=== PATIENT | female | born 1985 | race Caucasian/White ===

== ENCOUNTER → 2016-08-06 | Outpatient (CLI) | payer OTHER ==
[~2016-08-06] MED LIST: OXYC-57 PO; PRENTAB26 PO
[2016-08-06 12:47] LABS: URINE APPEARANCE CLEAR (CLEAR); URINE BILIRUBIN NEG (NEG); URINE COLOR YELLOW; URINE NITRITE NEG (NEG); UROBILINOGEN NEG (NEG)
[2016-08-06 12:56] LABS: MANUAL MICROSCOPIC REQUIRED? NO; REVIEW REQ? NO
== END | disposition home or self-care (01) ==
LOC: C.LABSPEC 12:04
PROVIDERS: ATTEND Obstetrics & Gynecology
DX: O09.40 Supervision of pregnancy with grand multiparity, unspecified trimester (principal); Z3A.00 Weeks of gestation of pregnancy not specified

== ENCOUNTER → 2016-08-13 | Outpatient (CLI) | payer OTHER | END | disposition home or self-care (01) | LOC: C.PAPS 10:26 | PROVIDERS: ATTEND Obstetrics & Gynecology | DX: O09.42 Supervision of pregnancy with grand multiparity, second trimester (principal); Z3A.00 Weeks of gestation of pregnancy not specified ==

== ENCOUNTER → 2016-11-18 | Outpatient (CLI) | payer OTHER ==
[2016-11-18 14:39] LABS: HEMATOCRIT 35.4 % (37-47)
[2016-11-18 17:54] LABS: GTGD 50 Grams
== END | disposition home or self-care (01) ==
LOC: C.LAB1850 12:18
PROVIDERS: ATTEND Obstetrics & Gynecology
DX: O09.42 Supervision of pregnancy with grand multiparity, second trimester (principal)

== ENCOUNTER → 2016-11-18 | Outpatient (CLI) | payer OTHER ==
[2016-11-18 15:07] LABS: URINE APPEARANCE CLEAR (CLEAR); URINE BILIRUBIN NEG (NEG); URINE COLOR DK YELLOW; URINE EPITHELIAL CELL AUTO >30 /lpf (0-5); URINE NITRITE NEG (NEG); URINE SPECIFIC GRAVITY 1.023 (1.000-1.030); UROBILINOGEN NEG (NEG)
[2016-11-18 15:09] LABS: MANUAL MICROSCOPIC REQUIRED? NO; REVIEW REQ? NO
== END | disposition home or self-care (01) ==
LOC: C.LABSPEC 13:35
PROVIDERS: ATTEND Obstetrics & Gynecology
DX: O09.42 Supervision of pregnancy with grand multiparity, second trimester (principal)

== ENCOUNTER → 2017-01-14 | Outpatient (CLI) | payer OTHER | END | disposition home or self-care (01) | LOC: C.LAB 12:25 | PROVIDERS: ATTEND Obstetrics & Gynecology | DX: Z01.812 Encounter for preprocedural laboratory examination (principal) ==

== ENCOUNTER 2017-01-24 05:22 | Inpatient (IN) | payer OTHER ==
--- NOTE | 2017-01-14 13:14 | HISTORY & PHYSICAL EXAMINATION ---
DATE OF ADMISSION: 01/24/2017 ADMITTING DIAGNOSES: 1. Term . 2. Previous sections x4. ADMISSION HISTORY: The patient is a 31-year-old 6, para 4-1-0-5 with a last menstrual period of 24 April and an EDC of 29 January by dates and first trimester ultrasound, who is admitted for a repeat section. The patient has had 4 previous sections as well as a vaginal after section. The patient has opted for the repeat section. The patient has had a benign course. Her blood type is O positive, antibody negative, rubella immune, and hepatitis B negative. She declined a quad screen. She had a normal 1-hour Glucola x2 and a negative third trimester beta strep culture. PAST MEDICAL HISTORY: OBSTETRICAL: As above. GYNECOLOGY: None. MEDICAL: None. SURGICAL: section. ALLERGIES: No known drug allergies. SOCIAL HISTORY: No smoking. FAMILY HISTORY: Noncontributory. REVIEW OF SYSTEMS: As per HPI. PHYSICAL EXAMINATION: GENERAL: Today shows a pleasant obese female in no acute distress. VITAL SIGNS: Blood pressure 124/70, height of 5 feet 1 inches and weight of 231 pounds. HEENT EXAMINATION: Unremarkable. NECK: Supple. LUNGS: Clear. HEART: With a regular rhythm and rate. ABDOMEN: Gravid, vertex, positive heart tones, estimated weight of 7-1/2 pounds. PELVIC: Shows normal external genitalia, vaginal wall pink and rugated. Cervix is long, thick and closed. EXTREMITIES: No deep calf tenderness. NEUROLOGIC: Grossly intact. IMPRESSION: A 31-year-old 6, para 4-1-0-5 at 39+ weeks' gestational age for repeat section. PLAN: Risks, benefits and alternatives to the surgery have been discussed. While the benefits will be delivery of the infant, the risks are bleeding, infection, inadvertent injury to bowel or bladder, readmission or reoperation. We have also discussed permanent surgical sterilization as she will be having her fifth section. The patient declines permanent surgical sterilization. She understands the risk in the future of getting again. The permit has been signed and she wishes to proceed.
[2017-01-14 13:23] LABS: BASO % 0.2 %; BASO ABS # 0.02 K/uL (0-0.2); COMPLETE YES; HEMATOCRIT 35.4 % (37-47); IG% 0.2 %; LYMPH % 27.1 %; LYMPH ABS # 2.53 K/uL (1.2-3.4); MEAN CELL VOLUME 81.9 fL (80-100); MEAN CORPUSCULAR HEMOGLOBIN 27.1 pg (25-34); MEAN CORPUSCULAR HGB CONC 33.1 g/dl (32-36); MEAN PLATELET VOLUME 10.2 fL (7.4-10.4); MONO % 9.9 %; NEUT % 60.6 %; PLATELET COUNT 287 K/uL (130-400); RED BLOOD COUNT 4.32 M/uL (4.2-5.4); WHITE BLOOD COUNT 9.32 K/uL (4.8-10.8)
--- NOTE | 2017-01-21 10:52 | PAT Medication Instructions ---
Service Date Jan 21, 2017. Current Home Medication List Multivit/Min/Iron/Fol Ac/Pren ( Vitamin), 1 TAB PO QAM Medication Instructions For Your Scheduled Surgery - Hold the following medications the morning of surgery: Multivit/Min/Iron/Fol Ac/Pren ( Vitamin), 1 TAB PO QAM Nothing to eat or drink after midnight If you have any questions please call us at [phone] or [phone] or [phone]
[2017-01-24] VITALS (16 sets, daily range): BP systolic 98–126; BP diastolic 59–78; PULSE 78–88; TEMP 36.7–37.1; O2SAT 97–100; Ht 154.9 cm; Wt 105.0 kg
[~2017-01-24] VITALS: Ht 154.9 cm; Wt 105.0 kg
[~2017-01-24 05:22] MED LIST changes: -OXYC-57 PO
[2017-01-24] MEDS ORDERED: LACTATED RINGER'S 1000ML 1,000 ML IV SCH ×2 (05:26→06:00)
[2017-01-24] MEDS ORDERED: CEFAZOLIN IV 2,000 MG in DEXTROSE 5% 50ML IV SCH (06:00)
[2017-01-24] MEDS ORDERED: CITRIC ACID/SODIUM CITRATE 15 ML UDC PO SCH (06:00)
[2017-01-24 06:07] LABS: BASO % 0.3 %; BASO ABS # 0.03 K/uL (0-0.2); COMPLETE YES; EOS % 1.3 %; IG% 0.3 %; LYMPH % 25.7 %; LYMPH ABS # 2.59 K/uL (1.2-3.4); MEAN CELL VOLUME 81.6 fL (80-100); MEAN CORPUSCULAR HEMOGLOBIN 26.5 pg (25-34); MEAN CORPUSCULAR HGB CONC 32.5 g/dl (32-36); MEAN PLATELET VOLUME 10.2 fL (7.4-10.4); MONO % 7.1 %; NEUT % 65.3 %; PLATELET COUNT 263 K/uL (130-400); RED BLOOD COUNT 4.41 M/uL (4.2-5.4); WHITE BLOOD COUNT 10.09 K/uL (4.8-10.8)
--- NOTE | 2017-01-24 07:13 | History & Physical Bridge Note ---
H&P Re-Evaluation Bridge Note: I have examined the patient, reviewed the History & Physical and in the interval since the performance of the History & Physical I have noted the following changes of clinical significance: No changes noted
[2017-01-24] MEDS ORDERED: MoRPHine SULFATE PF 1 MG/ML 10 ML AMP/VIAL ONE (07:55)
[2017-01-24] MEDS ORDERED: OXYTOCIN INJ 10 UNITS/ML VIAL ONE (08:08)
[2017-01-24] MEDS ORDERED: EpHEDrine SULFATE 50MG/5ML SYR ONE (08:09)
[2017-01-24] MEDS ORDERED: PHENYLEPHRINE 100MCG/ML 5ML SYR ONE (08:09)
--- NOTE | 2017-01-24 08:28 | [facility] Post Operative Brief Note ---
Immediate Operative Summary Operative Date Jan 24, 2017. Pre-Operative Diagnosis 1)Term . 2) Previous caesarean section X4. Post-Operative Diagnosis Same as above. Procedure(s) Performed 1)Repeat low cervical caesarean section. Delivery of live male child at [address]. Sur[address] Miller Golf Ball Molder Surgeon(s) Dr. Dubon Estimated Blood Loss 800cc Findings Viable male , Apgars 8/9, weight 7lbs 9 ozs, art/venous cord gasses pending, normal appearing tubes and ovaries bilaterally Fluids (cc crystalloids) 1000 Specimens A: Placenta hold B: Cord blood C: Cord gasses Drains Murillo to gravity Anesthesia Spinal Complication(s) None Disposition L&D
[2017-01-24] MEDS ORDERED: DIPHTHERIA/TETANUS/PERTUSSIS 0.5 ML SYR/VIAL IM. ONE (08:30)
[2017-01-24] MEDS ORDERED: SUPERCREAM 0.870 % 15GM JAR EXT PRN (08:30)
[2017-01-24] MEDS ORDERED: LANOLIN OINT EXT PRN ×2 (08:30)
[2017-01-24] MEDS ORDERED: BENZOCAINE 20% AER SPR 82.5 GM CAN EXT PRN (08:30)
[2017-01-24] MEDS ORDERED: HYDROCORTISONE ACETATE 25 MG SUPP PR PRN (08:30)
--- NOTE | 2017-01-24 08:46 | Medical Student: [facility] ---
Immediate Operative Summary Operative Date Jan 24, 2017. Pre-Operative Diagnosis Term . Repeat section x4. Post-Operative Diagnosis See above. Procedure(s) Performed Repeat section, vertical midline incision of a live male infant at 0755 Surgeon Faheem Miller MD Separating Machine Operator Surgeon(s) Carlyle Dubon MD Estimated Blood Loss 800cc Findings Live male , Apgars 8/9. 7 lbs 9 ozs. Normal appearing ovaries. Fluids (cc crystalloids) 1000cc Specimens Placenta Cord specimen Cord gasses Drains Murillo Anesthesia Spinal Complication(s) None Disposition L&D
[2017-01-24] MEDS: SIMETHICONE 80 MG CHEW PO SCH ×4 (09:00→20:00)
[2017-01-24] MEDS: OXYTOCIN INJ 20 UNITS in LACTATED RINGER'S 1000ML 1,000 ML IV SCH ×2 (09:05→17:53)
[2017-01-24] MEDS ORDERED: NALOXONE HCL INJ 1 MG in SODIUM CHLORIDE 0.9% 1000ML 1,000 ML IV PRN (09:21)
[2017-01-24] MEDS ORDERED: SODIUM CHLORIDE 0.9% 1000ML 1,000 ML IV PRN (09:21)
[2017-01-24] MEDS ORDERED: NALOXONE HCL INJ 0.08 MG in SYRINGE 1.8 ML IV PRN (09:21)
[2017-01-24] MEDS ORDERED: LACTATED RINGER'S 1000ML 500 ML IV PRN (09:21)
--- NOTE | 2017-01-24 09:24 | Anesthesiology Progress Note ---
Anesthesia Post Op Note Date & Time Jan 24, 2017 at 09:23 Notes Mental Status: alert / awake / arousable, participated in evaluation Pt Amnestic to Procedure: Yes Nausea / Vomiting: adequately controlled Pain: adequately controlled Airway Patency, RR, SpO2: stable & adequate BP & HR: stable & adequate Hydration State: stable & adequate Neuraxial Anesthesia: was administered, sensory block is resolving Anesthetic Complications: no major complications apparent
[2017-01-24] MEDS ORDERED: NO NARCOTICS OR SEDATIVES SCH (09:30)
[2017-01-24] MEDS ORDERED: FENTANYL CITRATE INJ 50 MCG/1 ML 2 ML VIAL IV PRN (09:30)
[2017-01-24] MEDS ORDERED: NALOXONE HCL 0.4 MG/1 ML VIAL/CARP IV PRN (09:30)
[2017-01-24] MEDS ORDERED: ATROPINE SULFATE 0.1 MG/ML 5ML SYR IV PRN (09:30)
[2017-01-24] MEDS ORDERED: MEPERIDINE HCL 25 MG/ML CARP IV PRN ×2 (09:30)
[2017-01-24] MEDS ORDERED: HYDROmorphone INJ 1 MG/ML SYR IV PRN (09:30)
[2017-01-24] MEDS ORDERED: NALBUPHINE HCL INJ 10 MG/ML AMP IV PRN (09:30)
[2017-01-24] MEDS ORDERED: KETOROLAC TROMETHAMINE 30 MG/ML VIAL IV. PRN (09:30)
[2017-01-24] MEDS ORDERED: MoRPHine SULFATE PF 1 MG/ML 10 ML AMP/VIAL EPI PRN (09:30)
[2017-01-24] MEDS ORDERED: ONDANSETRON INJ 2 MG/ML 2 ML VIAL IV PRN ×2 (09:30)
[2017-01-24] MEDS ORDERED: EpHEDrine SULFATE INJ 50 MG/ML AMP IV PRN ×2 (09:30)
[2017-01-24] MEDS ORDERED: MoRPHine SULFATE 2 MG/ML CARP IV PRN (09:30)
[2017-01-24] MEDS ORDERED: LABETALOL HCL IV 5 MG/ML 20ML IV PRN (09:30)
[2017-01-24] MEDS ORDERED: DiphenhydrAMINE HCL 50 MG/ML VIAL IV PRN ×2 (09:30)
--- NOTE | 2017-01-24 09:42 | OPERATIVE REPORT ---
DATE OF OPERATION: 01/24/2017 PREOPERATIVE DIAGNOSES: 1. Term . 2. Previous section x4. POSTOPERATIVE DIAGNOSES: Same. PROCEDURE PERFORMED: Repeat low cervical transverse section. SURGEON: Dr. Faheem Miller. CUSTOMS COMPLIANCE DIRECTOR: Dr. Rajiv Hyde ANESTHESIA: Spinal. FINDINGS: Viable male with Apgars of 8 and 9, weight of 7 pounds 9 ounces. Arterial and venous cord gases are pending. Normal appearing tubes and ovaries bilaterally. PROCEDURE IN DETAIL: The patient was taken to the operating room and after spinal anesthesia, she was placed in supine position and draped and prepped in the usual fashion. Midline vertical incision through previous surgical scar was made. Underlying subcutaneous tissue was dissected down to the ventral abdominal fascia, which was nicked and opened in a vertical manner. Preperitoneal fascia was dissected away until the peritoneal cavity was entered and opened in a vertical manner. Bladder blade was placed. The peritoneum overlying the uterus was elevated, opened in a semi-lunar fashion, the inferior margin of which was taken down creating the bladder flap. The uterus was entered sharply and extended in a semi-lunar fashion manually. Viable male with description as above was delivered. Loose nuchal cord x1 reduced on the perineum. Baby was delivered. Cord was clamped and cut and the baby was passed off to pediatrics, who was in attendance for the delivery. Cord gases and cord blood samples obtained. Placenta was delivered spontaneously. The uterus was exteriorized. The uterine cavity was wiped clean of any residual blood tissue and/or clot. Uterine incision was then closed with 2 layers of 4-0 Vicryl, the first a running locking stitch and the second an imbricating stitch. Hemostasis achieved and the uterus returned to the pelvic cavity. The paracolic gutters were cleared bilaterally of any blood tissue and/or clot. Inspection of the uterine incision again showed hemostasis. Sponge and needle count was correct. The fascia was then closed in a vertical manner from the inferior and superior poles to the midline with a running #1 PDS suture. Hemostasis present. Subcutaneous tissue was irrigated with warm saline and reapproximated with interrupted 2-0 plains. The skin incision was closed with theo. Sterile dressing was applied and the patient was taken to the recovery room in satisfactory condition. I attest to the content of the Intraoperative Record and any orders documented therein. Any exceptions are noted below. MTDD
[2017-01-25] VITALS: O2SAT 97
[2017-01-25 01:00] VITALS: O2SAT 100
[2017-01-25] MEDS ORDERED: MEPERIDINE HCL 50 MG/ML CARP IV PRN (01:30)
[2017-01-25] MEDS ORDERED: KETOROLAC TROMETHAMINE 30 MG/ML VIAL IV. PRN (01:30)
[2017-01-25] MEDS ORDERED: DC INTRASPINAL MORPHINE ONE (01:30)
[2017-01-25] MEDS ORDERED: ONDANSETRON INJ 2 MG/ML 2 ML VIAL IV PRN (01:30)
[2017-01-25] MEDS ORDERED: DiphenhydrAMINE HCL 50 MG/ML VIAL IV PRN (01:30)
[2017-01-25 04:00] VITALS: BP 112/71; PULSE 81; TEMP 36.8
[2017-01-25 06:23] LABS: BASO % 0.4 %; BASO ABS # 0.04 K/uL (0-0.2); COMPLETE YES; HEMATOCRIT 34.2 % (37-47); IG% 0.2 %; LYMPH % 16.3 %; LYMPH ABS # 1.73 K/uL (1.2-3.4); MEAN CELL VOLUME 81.6 fL (80-100); MEAN CORPUSCULAR HEMOGLOBIN 26.3 pg (25-34); MEAN CORPUSCULAR HGB CONC 32.2 g/dl (32-36); MEAN PLATELET VOLUME 10.1 fL (7.4-10.4); NEUT % 73.1 %; PLATELET COUNT 221 K/uL (130-400); RED BLOOD COUNT 4.19 M/uL (4.2-5.4); WHITE BLOOD COUNT 10.63 K/uL (4.8-10.8)
--- NOTE | 2017-01-25 06:38 | Progress Note ---
Subjective Jan 25, 2017. Subjective conversation w/ patient Ambulation: ambulating normally Voiding: no voiding problems (Murillo just removed, not voided yet.) Passing Gas: Yes Diet Tolerance: Clear Liquids Lochia: Small Feeding Type: Bottle Feeding Pain: Well controlled Comment: The patient was seen and examined at bedside. Pt reports pain is well controlled. No acute complaints. SCDs in place. According to chart no pain meds overnight. Afebrile, vital signs reviewed and stable. Pt denies fevers, abdominal pain, calf pain. Pt reports minor headache. Pt states she is bottle feeding, states that she has gone to the bathroom. Plan of care was described to the patient and all questions were answered. Review of Systems Constitutional: No fever, No chills Respiratory: No cough, No sputum, No shortness of breath Cardiac: No chest pain Abdomen: No pain, No nausea, No vomiting Female : No dysuria Objective Vital Signs Date Time Temp Pulse Resp B/P (MAP) Pulse Ox O2 Delivery O2 Flow Rate FiO2 01/25/17 04:00 36.8 81 18 112/71 (85) Room Air 01/25/17 01:00 20 100 01/25/17 00:00 18 97 01/24/17 23:55 37.0 88 20 99/66 (77) 01/24/17 23:55 97 Room Air 01/24/17 23:00 20 100 01/24/17 22:00 20 99 01/24/17 21:00 18 99 01/24/17 20:00 19 99 01/24/17 19:50 37.0 82 18 110/71 (84) Room Air 01/24/17 19:00 18 98 01/24/17 18:00 20 98 01/24/17 17:00 20 99 01/24/17 16:15 37.1 78 18 98/59 (72) 97 Room Air 01/24/17 16:15 98 Room Air 01/24/17 16:00 18 97 01/24/17 15:00 18 98 01/24/17 14:00 16 100 01/24/17 13:00 18 99 01/24/17 12:00 36.8 85 20 107/74 (85) 98 Room Air 01/24/17 12:00 20 98 01/24/17 11:00 20 100 01/24/17 11:00 100 Room Air 01/24/17 11:00 100 Room Air 01/24/17 11:00 36.7 86 20 126/78 (94) 100 Room Air Physical Exam General Appearance: WELL-APPEARING, WD/WN, NO APPARENT DISTRESS Respiratory/Chest: chest non-tender, lungs clear, normal breath sounds, no respiratory distress, no accessory muscle use Cardiovascular: regular rate, rhythm, no edema, no gallop, no JVD, no murmur Abdomen: non tender, soft, no organomegaly, no pulsatile mass, + pertinent finding (decreasd bowel sounds) Fundus: Firm, Tender (3/10 tenderness), Relation to Umbilicus (1cm above the umbilicus) Incision Description: Clean, Dry & Intact (Verticle incision is well healing with theo in place. ) Extremities: normal range of motion, non-tender, no pedal edema, no calf tenderness Laboratory Results Last 24 Hours Test 01/25/17 06:02 White Blood Count 10.63 K/uL Red Blood Count 4.19 M/uL Hemoglobin 11.0 g/dL Hematocrit 34.2 % Mean Corpuscular Volume 81.6 fL Mean Corpuscular Hemoglobin 26.3 pg Mean Corpuscular Hemoglobin Concent 32.2 g/dl Platelet Count 221 K/uL Mean Platelet Volume 10.1 fL Neutrophils (%) (Auto) 73.1 % Lymphocytes (%) (Auto) 16.3 % Monocytes (%) (Auto) 9.0 % Eosinophils (%) (Auto) 1.0 % Basophils (%) (Auto) 0.4 % Neutrophils # (Auto) 7.77 K/uL Lymphocytes # (Auto) 1.73 K/uL Monocytes # (Auto) 0.96 K/uL Eosinophils # (Auto) 0.11 K/uL Basophils # (Auto) 0.04 K/uL RDW Standard Deviation 43.5 fL RDW Coefficient of Variation 14.6 % Immature Granulocyte % (Auto) 0.2 % Immature Granulocyte # (Auto) 0.02 K/uL Assessment and Plan Post-Op (Day #1) Day#: 1 Continue Routine Care: 31F s/p repeat at 39W+2D, vertical incision, doing well GBS negative, O+ blood type vital signs reviewed and stable regular vital sign checks hemoglobin 11.7-->11.0, will repeat H&H tomorrow AM progress diet from clear liquids ambulate and SCDs for DVT prophylaxis control pain w PO/IV medication continue to monitor lochia and wound incision continue routine post op care Resident Physician Supervision Note: I interviewed and examined the patient. Discussed with Dr. Hyde and agree with findings and plan as documented in the note. Any exceptions or clarifications are listed here: [None] Documented By: Emilia Pedro Resident Involvement: Resident Care Provided Care Provided: OB Delivery
[2017-01-25 07:12] VITALS: BP 147/98; PULSE 88; TEMP 37; O2SAT 99
[2017-01-25] MEDS: PRENATAL VITAMIN TAB PO SCH (08:13)
[2017-01-25] MEDS: OXYCODONE/ACETAMINOPHEN 5-325 TAB PO PRN ×3 (08:15→19:35)
[2017-01-25] MEDS: SIMETHICONE 80 MG CHEW PO SCH ×4 (08:19→19:35)
[2017-01-25] MEDS: IBUPROFEN 600 MG TAB PO PRN ×2 (14:14→19:35)
[2017-01-25 15:50] VITALS: BP 124/82; PULSE 83; TEMP 36.7; O2SAT 98
[2017-01-25] MEDS: SENNA 8.6 MG TAB PO SCH (21:06)
[2017-01-25] MEDS ORDERED: MAGNESIUM HYDROXIDE SUSP 30 ML UDC PO SCH (22:00)
[2017-01-25 23:15] VITALS: BP 117/59; PULSE 56; TEMP 36.4
[2017-01-26] MEDS: OXYCODONE/ACETAMINOPHEN 5-325 TAB PO PRN ×3 (07:15→20:24)
--- NOTE | 2017-01-26 07:23 | Progress Note ---
Subjective Jan 26, 2017. Subjective conversation w/ patient Ambulation: ambulating normally Voiding: no voiding problems Passing Gas: Yes Diet Tolerance: Regular Diet (no pork) Lochia: Small Feeding Type: Bottle Feeding Comment: The patient was seen and examined at bedside. No acute overnight events. Got 1 Percocet at 8pm yesterday. Bonding appropriately w baby. Pt is resting comfortably in bed. Denies having any pain. Eating and urinating well. Wants to go home tomorrow. Plan of care was described to the patient and all questions were answered. Review of Systems Constitutional: No fever, No chills, No weight loss Respiratory: No cough, No sputum, No shortness of breath Cardiac: No chest pain Abdomen: No pain, No nausea, No vomiting, No diarrhea, No constipation Female : No dysuria Objective Vital Signs Date Time Temp Pulse Resp B/P (MAP) Pulse Ox O2 Delivery O2 Flow Rate FiO2 01/25/17 23:15 36.4 56 18 117/59 (78) Room Air 01/25/17 23:15 Room Air 01/25/17 15:50 36.7 83 20 124/82 (96) 98 01/25/17 15:50 98 Room Air 01/25/17 07:45 Room Air Physical Exam General Appearance: WELL-APPEARING, WD/WN Respiratory/Chest: chest non-tender, lungs clear, normal breath sounds, no respiratory distress, no accessory muscle use Cardiovascular: regular rate, rhythm, no edema, no gallop, no JVD, no murmur Abdomen: normal bowel sounds, non tender, soft, no organomegaly, no pulsatile mass Fundus: Firm, Non-Tender, Relation to Umbilicus (2+cm below the umbilicus. ) Incision Description: Clean, Dry & Intact Extremities: normal range of motion, non-tender, normal inspection, no pedal edema, no calf tenderness Laboratory Results Last 24 Hours Test 01/26/17 06:00 Assessment and Plan Post-Op Day#: 2 Continue Routine Care: 31F repeat at 39+2. vital signs reviewed and stable, continue regular checks GBS negative, O+ blood type, no TDAP documented hemoglobin 11.7-->11.0--> Pending continue regular diet encourage ambulations and SCDs when on bed for DVT prophylaxis control pain w PO medication continue to monitor lochia and wound incision Offer TDAP before departure continue routine post op care Resident Physician Supervision Note: I interviewed and examined the patient. Discussed with Dr. NOEL and agree with findings and plan as documented in the note. Any exceptions or clarifications are listed here: DOING WELL. ROUTINE CARE Documented By: Farheen Adamson Resident Involvement: Resident Care Provided Care Provided: OB Delivery
[2017-01-26 07:42] LABS: HEMATOCRIT 33.8 % (37-47)
[2017-01-26 07:45] VITALS: O2SAT 99
[2017-01-26 07:58] VITALS: BP 125/85; PULSE 75; TEMP 36.7; O2SAT 100
[2017-01-26] MEDS: IBUPROFEN 600 MG TAB PO PRN ×3 (08:15→20:24)
[2017-01-26] MEDS: PRENATAL VITAMIN TAB PO SCH (08:16)
[2017-01-26] MEDS: SIMETHICONE 80 MG CHEW PO SCH ×4 (08:16→20:24)
--- NOTE | 2017-01-26 11:25 | Discharge Instructions ---
Discharge Instructions Date of Service Jan 26, 2017. Admission Reason for Admission: Previous Section Discharge Discharge Diagnosis / Problem: Repeat low transverse Discharge Goals Goal(s): Routine recovery after Medications Continue Dispensed Medications: supercream, dermaplast, tucks, lansinoh Activity Recommendations Activity Limitations: as noted below . Instructions / Follow-Up Instructions / Follow-Up ACTIVITY RECOMMENDATIONS: * Gradual return to full activity over the next 2-3 weeks. * No lifting - nothing heavier than baby over the next 2-3 weeks. * Do not engage in vigorous exercise, sexual activity or sports until cleared by your physician. * Do not drive or operate any motorized equipment until cleared by your physician. * You may shower/bathe daily. MEDICATIONS: For discomfort or pain, you may use Acetaminophen (Tylenol), Ibuprofen (Advil), or Naproxen (Aleve) following the package directions. For constipation you may use Colace following the package directions. BREAST CARE: If you are not breast feeding: * Wear a supportive bra 24 hours a day for one to two weeks. * Avoid stimulating your breasts and nipples as much as possible during the first few weeks after delivery. * When taking a shower, have the warm water hit your back, not breasts. * When your breasts feel full, apply ice packs. Usually three to four times a day helps ease the discomfort. * Take a mild pain medication (Tylenol / Motrin) when you are uncomfortable. If breast feeding: * Use breast milk to lubricate nipples. Lansinoh cream may be used for sore nipples. You do not need to remove cream prior to breast feeding. If using a different brand of cream, check the label for directions regarding removal of cream prior to nursing. * Wear a supportive bra. * If having problems with breasts or breast feeding, call a information services consultant or your health care provider. SPECIAL CARE INSTRUCTIONS: When you are discharged from the hospital, it is important for you to follow the instructions listed below: * During the first week at home, you should be able to care for yourself and your baby. In addition, the usual light household activities are encouraged. * Limit your activities to the way you feel. Do not try to clean the house or move furniture. Be sensible. * If you actively engage in sports and have done so up until the time of your delivery, you may resume these activities as soon as you feel able. This may take up to one month or even longer. Use good judgment. * Continue to take your vitamins for at least six weeks after the of your baby. * Your diet need not be limited unless you were on a special diet before your delivery. Breast-feeding mothers need around 2500 calories per day and at least 64-80 ounces of fluid per day (8 to 10 glasses). * You should eat foods from the four major food groups. Crash diets or fad diets are to be avoided. Eating lean meats, fresh fruits and vegetables, low-fat dairy products, high fiber foods and a regular exercise program, will help you get back to your pre- weight without putting your health at risk. * Constipation is sometimes a problem after delivery. Take a mild laxative as needed. If breast feeding, Milk of Magnesia is acceptable to use. You may use a suppository or Fleets enema. * A daily shower or tub bath is suggested. Wash incision daily with warm soapy water and pat dry. It doesn't need to be covered unless drainage is present. * A bloody vaginal discharge will usually continue until around four weeks . A small amount of bleeding may continue for as long as six weeks. Vaginal discharge changes from the bright red bleeding after delivery to pink then brownish and finally yellowish-pink before becoming white and disappearing. * Bleeding may increase with activity. Your first period may come in 4-8 weeks. If you are breast feeding, your period may be delayed even longer. * [place] (sex) can begin whenever both you and your partner feel comfortable and do not have any form of genital infection. It is recommended that you wait at least six weeks for internal and external healing to occur. If you have questions, please talk to your health care practitioner. A condom should be used to prevent infection and . * Foreplay, gentle intercourse and lubrication is very important the first several times to prevent pain. A water-based lubricant such as K-Y jelly or Astroglide may be used. * If you have RH negative blood and your baby is RH positive, you will receive RHOGAM by injection prior to discharge. The nurse will give you a card to keep with you that has the date and place that you received RHOGAM after delivery. * During your care, you had a Rubella screen done to check for the presence of rubella antibodies in your blood. If your test was negative, you will receive a Rubella vaccine prior to discharge. This vaccine may cause a fever, soreness at the injection site and flu-like symptoms. If these symptoms persist, notify your health care practitioner. is not advised for one month after a Rubella vaccine. * Verbalizes understanding of car seat law as reviewed with patient nursing. * Car Seat hand-out given and reviewed with patient by nursing. * Shaken baby information reviewed with patient by nursing. Call you doctor if: * Heavy bleeding (saturating several pads an hour) or passing clots the size of your fist. * A fever >101 degrees F (38.3 degrees C) on two occasions four hours apart and /or chills. * Unusual pain in the pelvic or vaginal areas. * Call the doctor for any increased redness, drainage or swelling around the incision and any pain unrelieved by prescribed pain medication. * "Baby Blues" lasting longer than two weeks. If you have any questions or concerns, call your health care practitioner at . FOLLOW UP VISIT: * Please call the office at to schedule a 6 week examination. It is important you keep this appointment. It is important for you to make arrangements for either yearly or twice yearly check-ups thereafter. Current Hospital Diet Patient's current hospital diet: Regular OB Diet Discharge Diet Recommended Diet: Regular Diet Procedures Procedures Performed: 1)Repeat low cervical caesarean section. Delivery of live male child at 0755. Pending Studies Studies pending at discharge: no Medical Emergencies . Who to Call and When: Medical Emergencies: If at any time you feel your situation is an emergency, please call [phone] immediately. . Non-Emergent Contact Non-Emergency issues call your: Primary Care Provider . . "Provider Documentation" section prepared by Jluis Hyde. . VTE Core Measure Inpt VTE Proph given/why not?: SCD's
[2017-01-26] MEDS ORDERED: MAGNESIUM HYDROXIDE SUSP 30 ML UDC PO PRN (13:45)
[2017-01-26 15:51] VITALS: BP 100/59; PULSE 75; TEMP 36.5
[2017-01-26] MEDS: SENNA 8.6 MG TAB PO SCH (21:45)
[2017-01-27 00:30] VITALS: BP 93/44; PULSE 52; TEMP 36.7
[2017-01-27 04:00] VITALS: BP 100/52
[2017-01-27] MEDS: IBUPROFEN 600 MG TAB PO PRN ×2 (04:50→12:16)
[2017-01-27] MEDS: OXYCODONE/ACETAMINOPHEN 5-325 TAB PO PRN ×2 (04:50→12:15)
[2017-01-27 07:28] VITALS: BP 111/70; PULSE 70; TEMP 36.7; O2SAT 97
[2017-01-27 07:35] VITALS: O2SAT 98
[2017-01-27] MEDS: SIMETHICONE 80 MG CHEW PO SCH (07:45)
[2017-01-27] MEDS: PRENATAL VITAMIN TAB PO SCH (07:45)
[2017-01-27] MEDS ORDERED: OXYC-57 PO (08:39)
--- NOTE | 2017-01-27 08:39 | Progress Note ---
Progress Note Date of Service Jan 27, 2017. Progress Note [place] checked
--- NOTE | 2017-01-27 08:49 | Progress Note ---
Subjective Jan 27, 2017. Subjective conversation w/ patient Ambulation: ambulating normally Voiding: no voiding problems Passing Gas: Yes Diet Tolerance: Regular Diet (no pork) Lochia: Small Feeding Type: Bottle Feeding Comment: The patient was seen and examined at bedside. Pt got 2 Percocet tabs this morning. Pt is requesting an abdominal binder prior to discharge. Patient is resting comfortably in bed. Denies having any pain. Eating and urinating well. Plan of care was described to the patient and all questions were answered. Review of Systems Constitutional: No fever, No chills Respiratory: No cough, No sputum, No shortness of breath Cardiac: No chest pain, No edema Abdomen: No pain, No nausea, No vomiting, No diarrhea Female : No dysuria Objective Vital Signs Date Time Temp Pulse Resp B/P (MAP) Pulse Ox O2 Delivery O2 Flow Rate FiO2 01/27/17 07:28 36.7 70 16 111/70 (84) 97 Room Air 01/27/17 04:00 100/52 (68) 01/27/17 00:30 36.7 52 18 93/44 (60) Room Air 01/26/17 15:51 36.5 75 18 100/59 (73) Room Air 01/26/17 15:35 Room Air Physical Exam General Appearance: WELL-APPEARING, WD/WN, NO APPARENT DISTRESS Respiratory/Chest: chest non-tender, lungs clear, normal breath sounds, no respiratory distress, no accessory muscle use Cardiovascular: regular rate, rhythm, no edema, no gallop, no JVD, no murmur Abdomen: normal bowel sounds, non tender, soft, no organomegaly, no pulsatile mass Fundus: Firm, Non-Tender, Relation to Umbilicus (2cm below the umbilicus) Incision Description: Clean, Dry & Intact Extremities: normal range of motion, non-tender, normal inspection, no pedal edema, no calf tenderness, normal capillary refill Assessment and Plan Post-Op Day#: 3 Continue Routine Care: 31F repeat at 39+2. GBS negative, O+ blood type, no TDAP documented - will offer TDAP prior to discharge. vital signs reviewed and stable, continue regular checks hemoglobin 11.7-->11.0--> 10.6 continue regular diet Follow up in clinic on Tuesday for staple removal. encourage ambulations and SCDs when on bed for DVT prophylaxis control pain w PO Ibuprofen and Percocet - likely discharge with Rx for Percocet. continue to monitor lochia and wound incision continue routine post op care Resident Physician Supervision Note: I was present with Dr. Hyde during the history and exam. I discussed the case with the resident and agree with the findings and plan as documented in the note. Any exceptions or clarifications are listed here: [None] Documented By: Radha Aguirre Resident Involvement: Resident Care Provided Care Provided: OB Delivery
[2017-01-27 13:00] VITALS: BP_DIAS 70; PULSE 70; TEMP 36.7
--- NOTE | 2017-01-28 08:41 | EDITING REQUIRED CODING QUERY ---
CODING QUERY To promote full compliance with coding requirements relating to patient care, provider participation is requested in all cases of shut off worker uncertainty. Please assist us with the question(s) below: Coding Question(s): Dr. Miller, The operative report procedure description states low cervical section; however, the operative narrative describes a vertical incision. Please clarify which type of section was performed: ( x ) Low cervical (e.g. transverse) ( ) Classical (e.g., corporeal, fundal) ( ) Extraperitoneal (e.g., supravesical) Physician's Response(s): Melinda, you need to be careful. You reviewed the medical student note, and not my written and dictated operative note. In both of my notes, I documented a low cervical transverse C/S. She had a vertical skin incision, but that has nothing to do with the incision on the uterus. Thank you for your time, VLADISLAV Leiva, W[facility]
--- NOTE | 2017-01-28 18:08 | Discharge Summary ---
Discharge Summary Date of Service Jan 28, 2017. Discharge Summary Admission Date: Jan 24, 2017 at 05:22 Discharge Date: Jan 27, 2017 Discharge Disposition: Home Principal Diagnosis: 1) Term 2) Previous C/S x4 Procedures: Repeat low cervical transverse section Medication Reconciliation New Medications: Oxycodone/Acetaminophen 5MG/325MG (Percocet 5MG/325MG) Tab 1 TAB PO Q4H PRN for Pain - Pain Scale 1-5 for 7 Days, #30 TAB PAIN Continued Medications: Multivit/Min/Iron/Fol Ac/Pren ( Vitamin) Tab 1 TAB PO QAM, TAB Hospital Course On day of admission patient was taken to the operating room where she underwent a repeat low cervical transverse section. Findings included a viable male infant with Apgars of 8 and 9. Normal-appearing tubes and ovaries bilaterally. Postoperatively the patient did well. Murillo catheter was removed on the first postoperative day, by the third postoperative day the patient was tolerating regular diet and ambulating without difficulty. The patient was given routine discharge instructions and prescriptions for the medications as listed as above. She will follow-up in the office in 1 week for staple removal. Total Time Spent: Less than 30 minutes This includes examination of the patient, discharge planning, medication reconciliation, and communication with other providers. Discharge Instructions Please refer to the electronic Patient Visit Report (Discharge Instructions) for additional information. Follow-Up 1 week in the office for staple removal
[2017-01-28] MEDS ORDERED: BISACODYL 10 MG SUPP PR PRN (22:00)
== END 2017-01-27 13:30 | disposition home or self-care (01) | DRG 765 ==
LOC: C.LD 05:22 → EDSTATUS 07:30 → C.OBG 10:48
PROVIDERS: ADMIT Obstetrics & Gynecology; ATTEND Obstetrics & Gynecology
PROC: 10D00Z1 Extraction of Products of Conception, Low, Open Approach (ICD-10-PCS; principal; 2017-01-24 07:30)
DX: O34.219 Maternal care for unspecified type scar from previous cesarean delivery (principal); Z68.41 Body mass index [BMI] 40.0-44.9, adult; O99.214 Obesity complicating childbirth; N85.8 Other specified noninflammatory disorders of uterus; O69.81X0 Labor and delivery complicated by cord around neck, without compression, not applicable or unspecified; E66.9 Obesity, unspecified; Z37.0 Single live birth; Z3A.39 39 weeks gestation of pregnancy

== ENCOUNTER 2017-02-08 00:11 | Emergency (ER) | payer OTHER ==
[~2017-02-08] VITALS: Ht 157.5 cm; Wt 98.1 kg
[~2017-02-08 00:11] MED LIST changes: +OXYC-57 PO
[2017-02-08 00:13] VITALS: TEMP 36.4; Ht 157.5 cm; Wt 98.1 kg
--- NOTE | 2017-02-08 00:45 | EMERGENCY ROOM VISIT NOTE ---
History First contact with patient: 00:17 Chief Complaint: LEG PAIN,LEG INJURY Stated Complaint: HURT LEG - BOTH History of Present Illness The patient is a 31 year old female who presents to the Emergency Room with complaints of leg pain. The patient states that she had a 2 weeks ago. She reports that she began having pain in both of her legs. The pain is slightly worse than the left. She states that the legs appear swollen. She denies chest pain or shortness of breath. She rates her discomfort a 7/10. She is not a smoker. She denies history of blood clots. She does not take control pills. Review of Systems A complete 10 point review of systems was reviewed with the patient with pertinent positives and negatives as per history of present illness. All else were negative. Past Medical/Surgical History Medical Problems: (1) Supervision of high-risk with grand multiparity in third trimester Surgical Problems: (1) Previous delivery affecting , antepartum Social History Smoking Status: Never Smoker Current/Historical Medications Scheduled Multivit/Min/Iron/Fol Ac/Pren ( Vitamin), 1 TAB PO QAM Allergies Coded Allergies: NO KNOWN DRUG ALLERGIES (Verified Allergy, Unknown, , 02/08/17) Physical Exam Vital Signs Date Time Temp Pulse Resp B/P (MAP) Pulse Ox O2 Delivery O2 Flow Rate FiO2 02/08/17 02:10 60 18 112/63 100 Room Air 02/08/17 00:13 36.4 71 18 105/77 98 Room Air Physical Exam VITALS: Vitals are noted on the nurse's note and reviewed by myself. Vital signs stable. GENERAL: This is a 31-year-old female, in no acute distress, nondiaphoretic, well-developed well-nourished. SKIN: Capillary reflex less than 2 seconds. HEART: Regular rate and rhythm without murmurs gallops or rubs. LUNGS: Clear to auscultation bilaterally without wheezes, rales or rhonchi. EXTREMITIES: There is mild tenderness to palpation of bilateral calves. There is no erythema or obvious edema. Dorsalis pedis pulse 2+. Full range of motion bilateral lower extremities. NEURO: Patient was alert and oriented to person place and time. Normal sensation to light and sharp touch. Medical Decision & Procedures ER Provider Diagnostic Interpretation: US VENOUS BILATERAL LOWER EXTREMITIES: No DVT bilateral lower extremities. Radiologist: Eliza Millan MD Laboratory Results 02/08/17 00:45 Red Blood Count 4.66, Mean Corpuscular Volume 81.1, Mean Corpuscular Hemoglobin 26.2, Mean Corpuscular Hemoglobin Concent 32.3, Mean Platelet Volume 9.6, Neutrophils (%) (Auto) 41.0, Lymphocytes (%) (Auto) 43.8, Monocytes (%) (Auto) 8.8, Eosinophils (%) (Auto) 5.9, Basophils (%) (Auto) 0.4, Neutrophils # (Auto) 2.84, Lymphocytes # (Auto) 3.04, Monocytes # (Auto) 0.61, Eosinophils # (Auto) 0.41, Basophils # (Auto) 0.03 02/08/17 00:45 Test 02/08/17 00:45 White Blood Count 6.94 K/uL (4.8-10.8) Red Blood Count 4.66 M/uL (4.2-5.4) Hemoglobin 12.2 g/dL (12.0-16.0) Hematocrit 37.8 % (37-47) Mean Corpuscular Volume 81.1 fL (80-100) Mean Corpuscular Hemoglobin 26.2 pg (25-34) Mean Corpuscular Hemoglobin Concent 32.3 g/dl (32-36) Platelet Count 304 K/uL (130-400) Mean Platelet Volume 9.6 fL (7.4-10.4) Neutrophils (%) (Auto) 41.0 % Lymphocytes (%) (Auto) 43.8 % Monocytes (%) (Auto) 8.8 % Eosinophils (%) (Auto) 5.9 % Basophils (%) (Auto) 0.4 % Neutrophils # (Auto) 2.84 K/uL (1.4-6.5) Lymphocytes # (Auto) 3.04 K/uL (1.2-3.4) Monocytes # (Auto) 0.61 K/uL (0.11-0.59) Eosinophils # (Auto) 0.41 K/uL (0-0.5) Basophils # (Auto) 0.03 K/uL (0-0.2) RDW Standard Deviation 43.4 fL (36.4-46.3) RDW Coefficient of Variation 14.8 % (11.5-14.5) Immature Granulocyte % (Auto) 0.1 % Immature Granulocyte # (Auto) 0.01 K/uL (0.00-0.02) Prothrombin Time 10.6 SECONDS (9.0-12.0) Prothromb Time International Ratio 1.0 (0.9-1.1) Activated Partial Thromboplast Time 29.2 SECONDS (21.0-31.0) Partial Thromboplastin Ratio 1.1 Anion Gap 8.0 mmol/L (3-11) Est Creatinine Clear Calc Drug Dose 119.9 ml/min Estimated GFR () 125.4 Estimated GFR (Non- 108.2 BUN/Creatinine Ratio 21.6 (10-20) Calcium Level 8.9 mg/dl (8.5-10.1) ED Course The patient was evaluated as above. Labs were drawn and IV access was obtained. Ultrasound of both legs was performed and read by radiology as above. Patient was reevaluated and findings were discussed. Discharge instructions were reviewed with the patient. The patient verbalized understanding of my assessment and treatment plan and was discharged home in good condition. Medical Decision Differential diagnosis includes DVT, superficial thrombosis, trauma, electrolyte abnormalities, among others. The patient is a 31-year-old female who presents today complaining of bilateral leg swelling and pain. The patient had a recent . For this reason, there was concern for DVT. Ultrasound was performed of bilateral legs and was read by statrad with no evidence of DVT. Patient was informed of the findings. She was instructed to follow-up with her primary care provider for further evaluation. Based on the patient's presentation and work up, I feel the patient is stable for outpatient treatment. The patient was educated to return to the emergency department for any worsening of their current condition or new/concerning symptoms. She will follow up with her PCP. Medication reconciliation: I attest that I have personally reviewed the patient 's current medication list. Blood pressure screening: Patient was found to have normal blood pressure on screening and does not require follow-up. Impression Primary Impression: Bilateral leg pain Departure Information Dispostion Home / Self-Care Condition GOOD Referrals No Doctor, Assigned (PCP) Patient Instructions [facility] Additional Instructions Follow-up with your [facility] this week. Ultrasound today was negative for any blood clots. Return to the emergency department for any worsening or new/concerning symptoms as needed.
[2017-02-08 00:57] LABS: BASO % 0.4 %; BASO ABS # 0.03 K/uL (0-0.2); COMPLETE YES; EOS % 5.9 %; HEMATOCRIT 37.8 % (37-47); IG% 0.1 %; LYMPH % 43.8 %; LYMPH ABS # 3.04 K/uL (1.2-3.4); MEAN CELL VOLUME 81.1 fL (80-100); MEAN CORPUSCULAR HEMOGLOBIN 26.2 pg (25-34); MEAN CORPUSCULAR HGB CONC 32.3 g/dl (32-36); MEAN PLATELET VOLUME 9.6 fL (7.4-10.4); MONO % 8.8 %; PLATELET COUNT 304 K/uL (130-400); RED BLOOD COUNT 4.66 M/uL (4.2-5.4); WHITE BLOOD COUNT 6.94 K/uL (4.8-10.8)
[2017-02-08 01:14] LABS: BUN/CREATININE RATIO 21.6 (10-20); CALCIUM 8.9 mg/dl (8.5-10.1); CREATININE 0.73 mg/dl (0.60-1.20); POTASSIUM 4.1 mmol/L (3.5-5.1)
[2017-02-08 01:21] LABS: PARTIAL THROMBOPLASTIN RATIO 1.1; PROTHROMBIN TIME (PATIENT) 10.6 SECONDS (9.0-12.0)
[2017-02-08 03:34] VITALS: BP 101/61; PULSE 74; O2SAT 99
--- NOTE | 2017-02-08 06:18 | DIAGNOSTIC IMAGING REPORT ---
BILATERAL LOWER EXTREMITY VENOUS DOPPLER HISTORY: Pain. Edema. leg pain/swelling, recent surgery COMPARISON STUDY: None. FINDINGS: There is normal compressibility, flow, and augmentation within the bilateral lower extremity deep venous systems. IMPRESSION: No DVT within the right or left lower extremity. Electronically signed by: Jluis Davila M.D. 02/08/2017 6:17 AM Dictated Date/Time: 02/08/2017 6:16 AM
== END 2017-02-08 03:34 | disposition home or self-care (01) ==
LOC: C.EDB 00:12 → C.EDA 03:34
DX: M79.605 Pain in left leg (principal); M79.604 Pain in right leg